=== PATIENT | male | born 1940 | race Caucasian/White ===

== ENCOUNTER → 2016-05-08 | Outpatient (CLI) | payer OTHER ==
[~2016-05-08] MED LIST: MECLIZINE HCL25 M1 PO; ZOFRAN ODT4 MG PO
== END ==
LOC: MRI 09:26
DX: M54.5 Low back pain (principal); M47.26 Other spondylosis with radiculopathy, lumbar region; M48.06 Spinal stenosis, lumbar region; M48.07 Spinal stenosis, lumbosacral region

== ENCOUNTER → 2018-03-25 | Outpatient (CLI) | payer OTHER | LOC: CAT 14:46 | DX: K57.30 Diverticulosis of large intestine without perforation or abscess without bleeding (principal); I71.4 Abdominal aortic aneurysm, without rupture; M47.816 Spondylosis without myelopathy or radiculopathy, lumbar region ==

== ENCOUNTER → 2019-09-09 | Outpatient (CLI) | payer OTHER | LOC: CAT 09:29 | DX: J84.10 Pulmonary fibrosis, unspecified (principal); N62 Hypertrophy of breast ==

== ENCOUNTER → 2020-11-28 | Outpatient (CLI) | payer OTHER | LOC: RAD 09:35 | PROVIDERS: ATTEND Neuromusculoskeletal Medicine & OMM | DX: M47.816 Spondylosis without myelopathy or radiculopathy, lumbar region (principal); M47.817 Spondylosis without myelopathy or radiculopathy, lumbosacral region; M25.78 Osteophyte, vertebrae; M48.061 Spinal stenosis, lumbar region without neurogenic claudication; M40.56 Lordosis, unspecified, lumbar region; I70.8 Atherosclerosis of other arteries ==

== ENCOUNTER → 2020-11-30 | Outpatient (CLI) | payer OTHER | LOC: MRI 15:10 | PROVIDERS: ATTEND Neuromusculoskeletal Medicine & OMM | DX: M47.27 Other spondylosis with radiculopathy, lumbosacral region (principal); M48.061 Spinal stenosis, lumbar region without neurogenic claudication ==

== ENCOUNTER → 2020-12-28 | Outpatient (CLI) | payer OTHER ==
[~2020-12-28] MED LIST changes: +FAMOTIDINE 40 M40 M1 PO; +FLOMAX0.4 MG PO; +GLUCOTROL5 MG PO; +JANUVIA100 MG PO; +LIPITOR 20 MG T20 M1 PO; +LOSARTAN POTASS50 MG PO; +NEURONTIN 400M400 M2 PO; +PROSCAR 5MG TABL5 M1 PO; +PROTONIX40 M2 PO
[2020-12-28 12:03] LABS: HEMATOCRIT 42.9 % (42.0-52.0); HEMOGLOBIN 14.3 gm/dL (14.0-18.0); MCH 31.8 pg (26.0-34.0); MCHC 33.3 g/dL (28.0-37.0); MCV 95.4 fL (80.0-100.0); RBC 4.5 mil/uL (4.50-6.00); RDW 14.9 % (10.5-14.5); WBC 5.5 thou/uL (4.0-11.0)
[2020-12-28 12:16] LABS: APTT 26.9 Seconds (24.5-32.8); INR 1.01
[2020-12-28 12:25] LABS: URINE BILIRUBIN NEGATIVE (Negative); URINE BLOOD NEGATIVE (Negative); URINE CLARITY CLEAR; URINE COLOR YELLOW; URINE GLUCOSE-RANDOM* NEGATIVE (Negative); URINE KETONES NEGATIVE (Negative); URINE LEUKOCYTES-REFLEX NEGATIVE (Negative); URINE NITRITE-REFLEX NEGATIVE (Negative); URINE PROTEIN (DIPSTICK) NEGATIVE (Negative); URINE UROBILINOGEN 0.2 E.U./dl (0.2-1.0)
[2020-12-28 12:39] LABS: ALBUMIN 3.9 g/dL (3.4-5.0); CALCIUM 8.9 mg/dL (8.5-10.1); POTASSIUM 4.8 mmol/L (3.5-5.1); TOTAL BILIRUBIN 0.5 mg/dL (0.2-1.0); TOTAL PROTEIN 6.8 g/dL (6.4-8.2)
--- NOTE | 2020-12-28 15:42 | EKG ---
[address] [place] [address] ELECTROCARDIOGRAM REPORT Name: DUKE SIERRA Room #: REG CLI Brandee#: [id number] Admission: 12/28/20 Attend Phys: aJvier Anthony, Discharge: Date of : 40 Report #: [id number] [facility] Test Date: 2020-12-28 Test Time: 11:09:11 Pat Name: DUKE SIERRA Department: Room: Gender: M Perfume Maker: VICKY : 1940 Requested By: Javier nAthony Order Number: [id number] MD: Stiven Torres Measurements Intervals [place] Rate: 59 P: 52 NC: 156 QRS: 35 QRSD: 95 T: 27 QT: 416 QTc: 413 Interpretive Statements Sinus rhythm Abnormal R-wave progression, early transition Compared to ECG 03/18/2012 16:57:53 Poor R-wave progression no longer present Electronically Signed On 12-28-2020 15:42:16 CDT by Stiven Torres [email or web address] <ELECTRONICALLY SIGNED> By: Stiven Torres MD, [facility] 12/28/20 1542 [id number] [id number] Stiven Torres MD, FACC /EPI
== END ==
LOC: PAC 08:47
PROVIDERS: ATTEND Specialist
DX: M48.061 Spinal stenosis, lumbar region without neurogenic claudication (principal)

== ENCOUNTER 2021-01-02 06:57 | Inpatient (IN) | payer OTHER ==
[~2021-01-02] VITALS: Ht 180.3 cm; Wt 87.5 kg
[2021-01-02 08:21] VITALS: BP 121/67
--- NOTE | 2021-01-02 18:21 | NUR ---
PT ARRIVED FROM PACU AT 1600 THIS AFTERNOON. PT HAD LAMINECTOMY ON L4-5 AND THERE ALSO WAS A CSF DEURA LEAK. PT HAS TO LIE FLAT WITH NO MORE THAT 15 DEGREE SIDE ELEVATION. PT IS A/OX4 AND WAS ASSESSED BY RN. CALL LIGHT AND OTHER NEEDS ARE WITHIN REACH, MEDS AND TX GIVEN NEEDED AND SCHEDULED. WILL MONITOR AND NOTE ANY CHANGES.
[2021-01-02 19:48] VITALS: BP 118/70
--- NOTE | 2021-01-03 02:25 | NUR ---
PT CARE ASSUMED WITH AT BEDSIDE AT 1900.PT IS A/O X4.PT IS ON 24HRS BEDREST.PT C/O PAIN AND PAIN MANAGED WITH PERCOCET WITH RELIEF.PT IS ON ROOM AIR.PT IS ACCUCHECK BID WITH SSI AFTER MEAL.PT USING ICE PACK ON BACK TO RELIEF PAIN.IV ACCESS ON LT FA WITH NS @80CC/HR.PT VOIDING USING A URINAL.WILL CONTINUE TO MONITOR PER POC
[2021-01-03 05:39] LABS: BASOPHILS 0.3 % (0.0-2.0); EOSINOPHILS 1.8 % (0.0-3.0); HEMATOCRIT 35.9 % (42.0-52.0); HEMOGLOBIN 12.3 gm/dL (14.0-18.0); LYMPHOCYTES 16.8 % (24.0-44.0); MCH 32.5 pg (26.0-34.0); MCHC 34.2 g/dL (28.0-37.0); MONOCYTES 10.5 % (1.0-8.0); PLATELET COUNT 150 thou/uL (150-400); POLYS 70.6 % (36.0-66.0); RBC 3.78 mil/uL (4.50-6.00); RDW 14.7 % (10.5-14.5); WBC 7.1 thou/uL (4.0-11.0)
[2021-01-03 05:59] LABS: CALCIUM 8.4 mg/dL (8.5-10.1); CREATININE 1.1 mg/dL (0.7-1.3); MAGNESIUM 1.8 mg/dL (1.8-2.4); POTASSIUM 4.5 mmol/L (3.5-5.1)
[2021-01-03 08:25] VITALS: BP 132/71
--- NOTE | 2021-01-03 15:30 | EKG ---
[place] [address] [facility] [place] [address] ELECTROCARDIOGRAM REPORT Name: DUKE SIERRA Room #: 434-P [facility] M.R.#: [id number] Admission: 01/02/21 Attend Phys: Javier Anthony, Discharge: Date of : 40 Report #: [id number] [facility] Test Date: 2021-01-03 Test Time: 12:34:38 Pat Name: DUKE SIERRA Department: Room: 434 P Gender: M Sales Floor Team Leader: : 1940 Requested By: Stephanie Loco Order Number: [id number] MD: Stiven Torres Measurements Intervals [place] Rate: 73 P: 34 [place]: 151 QRS: 53 QRSD: 85 T: 31 QT: 387 QTc: 427 Interpretive Statements Sinus rhythm Abnormal R-wave progression, early transition Compared to ECG 12/28/2020 11:09:11 No significant changes Electronically Signed On 01-03-2021 15:30:26 CDT by Stiven Torres [email or web address] <ELECTRONICALLY SIGNED> By: Stiven Torres MD, [facility] 01/03/21 1530 1234 1234 Stiven Torres MD, FACC /EPI
--- NOTE | 2021-01-03 15:34 | NUR ---
ASSESSMENT: CM REVIEWED CHART AND SPOKE WITH PT AT THE BEDSIDE. PT IS ALERT AND ORIENTED X4. PT IS S/P LAMINECTOMY. PT REPORTS LIVING IN A HANDICAP ACCESSIBLE HOME AND REPORTS HAVING NO STEPS HE HAS TO USE. PT REPORTS SINCE HURTING HIS BACK HE HAS BEEN USING A CANE AND WALKER AT HOME. PT REPORTS THEY HAVE GRAB BARS IN THE SHOWER AND A SHOWER CHAIR. PT REPORTS HE HAS HAD HH YEARS AGO BUT STATES IT HAS BEEN OVER 20 YEARS AND UNSURE THE AGENCY. PT HAS NEVER BEEN TO ACUTE REHAB OR SNF. CM DISCUSSED ROLE. PT IS HOPEFUL HE WILL HAVE NO NEEDS. PT REPORTS HAVING CHEST PAIN TODAY, BEDSIDE RN NOTIFIED AND IS AWARE. EKG AND TROPONIN HAD BEEN ORDERED. CM WILL CONTINUE TO FOLLOW TO ASSIST NEEDED.
[2021-01-03 15:37] VITALS: BP 113/63
--- NOTE | 2021-01-03 16:25 | NUR ---
ASSUMED CARE OF PT AT 0700 THIS MORNING. PT IS STILL RESTRICTED AND MUST REMAIN FLAT ON BACK FOR 24 HRS. PT HAS C/O LT SIDE CHEST PAIN AND HAS HAD NO RELIEF FROM THE PECID OR TUMS. DR. SANTIAGO PLACED ORDERS FOR PROTONICS AND PEPCID. PT FELT MUCH BETTER AND STATED HE WAS VERY FLATULANT. PT WAAS SLEEPING AFTER 30MIN CHECK. ASSESSMENTS CHARTED AND OTHERWISE UNREMARKABLE. PT HAS REMAINED ON BACK THROUGHOUT THE SHIFT. CALL LIGHT AND OTHER NEEDS ARE WITHIN REACH. MEDS AND TX GIVEN NEEDED AND SCHEDULED. WILL CONTINUE TO MONITOR AND NOTE ANY CHANGES.
[2021-01-03 20:08] VITALS: BP 144/75
[2021-01-03 23:45] VITALS: BP 144/75
--- NOTE | 2021-01-04 03:00 | NUR ---
ASSUMED CARE AT 1900. PT IS A/O X4 AND IS CURRENTLY ON BEDREST POST PROCEDURE. VSS AFEBRILE. C/O LOWER BACK PAIN. PRN PAIN MEDICATION GIVEN DIRECTED. C/O BACK SPASM. PRN GIVEN DIRECTED FOR SPASMS. PT IS PLEASANT AND COOPERATIVE. FALL PRECAUTIONS IN PLACE, CALL LIGHT IS WITHIN REACH. PT CALLS OUT APPROPRIATELY. MEDICATIONS GIVEN PER JUL. HS BS 202. WILL CONTINUE TO MONITOR.
[2021-01-04 08:39] VITALS: BP 152/80
--- NOTE | 2021-01-04 09:19 | NUR ---
Assumed care of pt at 0700. Pt a&ox4. Pt c/o pain related to GERD. Pt able to use urinal. Will elevate HOB 30 degrees x 1 hour and 45 degress x 1 hour, if no headache present. Pt educated on no straining. Dressing c/d/i. Fall precautons in place. Will continue to monitor.
--- NOTE | 2021-01-04 14:19 | NUR ---
ON-GOING ASSESSMENT: CM REVIEWED CHART AND SPOKE WITH PATIENT AND HIS AT THE BEDSIDE. PT IS UNABLE TO WORK WITH PT/OT AT THIS TIME DUE TO RESTRICTIONS. PT REPORTS HE NORMALLY DOES WELL ON THIS OWN AND WANTS TO AWAIT THERAPY EVALS BEFORE DECIDING IF HE REALLY NEEDS HOME HEALTH OR NOT. CM WILL CONTINUE TO FOLLOW TO ASSIST NEEDED. PT WILL REMAIN IN THE HOSPITAL OVERNIGHT AND CM WILL FOLLOW UP IN THE AM.
[2021-01-04 16:00] VITALS: BP 116/68
[2021-01-04 19:10] VITALS: BP 125/65
--- NOTE | 2021-01-05 02:27 | NUR ---
PT DENIED PAIN SO FAR.PT STATED THAT HE HAS NOT HAD ANY BM SINCE SATURDAY, PT PASSING GAS.JIMENA STOOL SOFTNER GIVEN.PT REQUESTED TO GO TO BR,NOT SUCCESSFUL HAVING A BM.PT STATED HE WAS JUST PASSING GAS.DRSG INTACT ON HIS BACK.PT LOOKING FORWARD TO BE DC'S LATER IN THE DAY.CALL LIGHT WITHIN REACH.
[2021-01-05 02:30] VITALS: BP 114/54
[2021-01-05 08:26] VITALS: BP 117/72
--- NOTE | 2021-01-05 09:43 | NUR ---
Assumed care of pt at 0700. Pt a&ox4. Pain controlled with prn pain medications. Pt concerned he has not had a BM in 4 days. Provider aware. New orders noted. SBA with gait-belt and walker. Dressing c/d/i. Family at bedside. Call light within reach. Fall precautions in place. Will continue to monitor.
--- NOTE | 2021-01-05 11:32 | NUR ---
on-going assessment: CM REVIEWED CHART AND MET WITH PATIENT AT THE BEDSIDE. PT CONTINUES TO WORK WITH PT/OT. OT CLEATED PATIENT AND AWAITING FURTHER PT EVAL FROM TODAY. CM DISCUSSED POSSIBLE HOME HEALTH AT DISCHARGE. PT STATES HE DOES NOT FEEL THE NEED FOR THIS AND DOES NOT WANT HH AT THIS TIME. PT REPORTS HAVING HIS CANE AND WALKER AT HOME AND STATES HE PREFERS TO GO TO OUTPATIENT PT EVENTUALLY WHEN CLEATED TO DO SO. PT DOES NOT FEEL HE NEEDS HOME HEALTH AT DISCHARGE. ANTICIPATE LIKELY DISCHARGE HOME TOMORROW. CM WILL CONTINUE TO FOLLOW TO ASSIST NEEDED.
[2021-01-05 15:45] VITALS: BP 123/75
[2021-01-05 20:45] VITALS: BP 120/71
--- NOTE | 2021-01-06 02:25 | NUR ---
ASSUMED CARE OF PT AT 1900. BEDSIDE REPORT RECIEVED. MISTY ASSESSMENT COMPLETE. DENIES ANY PAIN AT THIS TIME. MEDS ADMINISTERED PER MAR. PER PT HAD ONE BM EARLIER BUT WAS HARD AND FORMED. LFA PIV PATENT AND CDI. LUMBAR AQUACELL DRESSING CDI C NO NOTED DRAINAGE. REFILLED WATER. ALL NEEDS MET. NO OTHER NEEDS AT THIS TIME. CALL LIGHT IN REACH
[2021-01-06 02:30] VITALS: BP 120/68
[2021-01-06 07:45] VITALS: BP 95/58
[2021-01-06] MEDS ORDERED: METHOCARBAMOL500 M2 PO (09:31)
[2021-01-06] MEDS ORDERED: PERCOCET PO (09:31)
[2021-01-06] MEDS ORDERED: CARAFATE1 GM PO (09:32)
[2021-01-06] MEDS ORDERED: SENOKOT-S1 TA2 PO (09:32)
[2021-01-06 10:51] VITALS: BP 95/58
--- NOTE | 2021-01-06 11:20 | NUR ---
PT DOING WELL. DISCHARGING AT THIS TIME AND WILL F/U NEXT WEEK W/ SURGEON.
--- NOTE | 2021-01-06 12:25 | NUR ---
DISCHARGE NOTE: SW reviewed chart and spoke with attending physician. Pt is medically stable for discharge home today. Pt to follow up with neurosurgery in 2 weeks. No discharge needs identified at this time. SW is available to assist should needs arise.
== END 2021-01-06 14:05 | disposition home or self-care (01) | DRG 519 ==
LOC: OR 06:57 → TBA 06:57 → OR 10:17 → 4S 16:04 → OR 16:04 → 4S 01-04 10:15
PROVIDERS: Nurse Practitioner; ADMIT Hospitalist; ATTEND Specialist
PROC: 00NY0ZZ Release Lumbar Spinal Cord, Open Approach (ICD-10-PCS; principal; 2021-01-02)
PROC: 00QT0ZZ Repair Spinal Meninges, Open Approach (ICD-10-PCS; principal; 2021-01-02)
DX: M48.061 Spinal stenosis, lumbar region without neurogenic claudication (principal); G97.41 Accidental puncture or laceration of dura during a procedure; I10 Essential (primary) hypertension; E78.5 Hyperlipidemia, unspecified; G89.29 Other chronic pain; M54.9 Dorsalgia, unspecified; E11.42 Type 2 diabetes mellitus with diabetic polyneuropathy; E78.00 Pure hypercholesterolemia, unspecified; K21.9 Gastro-esophageal reflux disease without esophagitis; Z96.643 Presence of artificial hip joint, bilateral; Z96.611 Presence of right artificial shoulder joint; N40.0 Benign prostatic hyperplasia without lower urinary tract symptoms; Z20.822 Contact with and (suspected) exposure to COVID-19; Z88.6 Allergy status to analgesic agent
CPT/HCPCS: 10102; 50010; 50101; 50402; 51436; 55340; 56525; 56528; 56532; 57006; 57103; 57973; 58457; 58567; 62110; 62900; 70005